=== PATIENT | female | born 1950 | race African-American/Black ===

== ENCOUNTER 2022-05-13 11:50 | Emergency (ER) | payer MEDICARE ==
[~2022-05-13] VITALS: Ht 157.5 cm; Wt 52.3 kg
[2022-05-13 12:47] VITALS: BP 159/85
[2022-05-13] MEDS ORDERED: IBUP600T27 PO (14:41)
[2022-05-13] MEDS ORDERED: HYDR-4902 PO (14:41)
[2022-05-13] MEDS ORDERED: AMOX-277 PO (14:41)
[2022-05-13] MEDS ORDERED: HYDROcodone-ACET 10/325MG TAB PO ONE (14:45)
== END 2022-05-13 14:56 | disposition home or self-care (01) ==
LOC: ER 11:50
DX: K04.7 Periapical abscess without sinus (principal); J44.9 Chronic obstructive pulmonary disease, unspecified; F17.210 Nicotine dependence, cigarettes, uncomplicated